=== PATIENT | female | born 2000 | race Caucasian/White ===

== ENCOUNTER 2023-02-07 14:43 | Emergency (ER) | payer BC, SELFPAY ==
[2023-02-07 14:53] VITALS: BP 148/66; PULSE 80; RESP 16; TEMP 37.3; O2SAT 100
--- NOTE | 2023-02-07 15:24 | ED.EAR ---
HPI - Ear Problem General Chief complaint: Ear Stated complaint: Left Ear Pain Source: patient Mode of arrival: ambulatory Limitations: no limitations History of Present Illness HPI Narrative: PATIENT PRESENTS FOR EVALUATION OF DECREASED HEARING AND INCREASED PRESSURE IN HER LEFT EAR THE LAST 5 DAYS. SHE PUT SOME OF HER BOSS' BREAST MILK IN HER EAR TO ASSIST WITH HER SYMPTOMS. IT DID NOT REDUCE HER SYMPTOMS. SHE DENIES ANY FEVER, CHILLS, NAUSEA, VOMITING, SORE THROAT, RESPIRATORY SYMPTOMS. NO HISTORY OF SIMILAR SYMPTOMS. Related Data Allergies Allergy/AdvReac Type Severity Reaction Status Date / Time No Known Allergies Allergy Verified 02/07/23 14:56 Review of Systems Review of Systems: CONSTITUTIONAL: DENIES FEVER, CHILLS, OR SWEATS. EYES: DENIES VISUAL CHANGES, REDNESS, OR DISCHARGE. ENT: REPORTS PRESSURE IN THE LEFT EAR WITH DECREASED HEARING CARDIOVASCULAR: DENIES CHEST PAIN, PALPITATIONS, OR EDEMA. RESPIRATORY: DENIES COUGH OR DYSPNEA. GASTROINTESTINAL: DENIES ABDOMINAL PAIN, NAUSEA, VOMITING, OR DIARRHEA. GENITOURINARY: DENIES DYSURIA OR HEMATURIA. SKIN: DENIES RASH OR ITCHING. MUSCULOSKELETAL: DENIES BACK PAIN, JOINT PAIN, OR MYALGIA. NEUROLOGIC: DENIES HEADACHE, NUMBNESS, DIZZINESS, OR WEAKNESS. PSYCHIATRIC: DENIES ANXIETY OR DEPRESSION. PMFSH Past Medical History Medical History No pertinent past medical history Surgical History Surgical History No pertinent past surgical history Family History Family History Mother Family history non-contributory Social History Social History Smoking status: Current some day smoker Tobacco type: e-cigarettes/vaping Substance use: current Substance use type: marijuana Gender identity (if verbalized by the patient): Female Spiritual care concerns: No Exam Narrative: GENERAL: WELL-APPEARING, WELL-NOURISHED, AND IN NO ACUTE DISTRESS. HEAD: NORMOCEPHALIC, ATRAUMATIC. EYES: PERRLA AND EOMI. ENT: NARES CLEAR, NO RHINORRHEA OR EPISTAXIS. MUCOUS MEMBRANES MOIST. OROPHARYNX WITHOUT TONSILLAR HYPERTROPHY EXUDATE OR OTHER LESIONS. UNABLE TO VISUALIZE BILATERAL TYMPANIC MEMBRANES DUE TO YELLOW EXUDATE AND CERUMEN NECK: SUPPLE. NO ADENOPATHY OR MASSES. NO CAROTID BRUITS OR JVD CHEST: CLEAR TO AUSCULTATION. NO RESPIRATORY DISTRESS. NO WHEEZES RALES OR RHONCHI HEART: REGULAR RATE AND RHYTHM. NO MURMUR HEARD. NORMAL PERIPHERAL PULSES. ABDOMEN: SOFT, NONTENDER, NONDISTENDED, NORMAL ACTIVE BOWEL SOUNDS. EXTREMITIES: NORMAL RANGE OF MOTION. NO EDEMA. SKIN: WARM, DRY, NO RASH. NEURO: NO FOCAL DEFICITS. ALERT AND ORIENTED X3. PSYCH: NORMAL MOOD AND AFFECT. Course Course Emergency Course: THIS IS A 22-YEAR-OLD FEMALE WHO PRESENTED FOR EVALUATION OF LEFT-SIDED EAR PAIN AND DECREASED HEARING. I WAS UNABLE ADULT VISUALIZE HER TYMPANIC MEMBRANES. I IRRIGATED HER EARS WITH HYDROGEN PEROXIDE AND WATER. RIGHT TYMPANIC MEMBRANE INTACT. THERE APPEARS TO BE A PERFORATION LEFT TYMPANIC MEMBRANE. LIKELY 2/2 OTITIS MEDIA SHE HAS SOME YELLOW EXUDATE IN EAR CANAL WILL DC WITH AUGMENTIN AND OFLOXACIN. OTC AGENTS FOR SYMPTOM MANAGEMENT. FOLLOW UP OUTPT AND GO TO ER FOR WORSENING SYMPTOMS. PT IN AGREEMENT WITH PLAN OF CARE. Level of Care: Express Care Visit Vital Signs Vital signs: Vital Signs Temperature 37.3 C 02/07/23 14:53 Pulse Rate 80 02/07/23 14:53 Respiratory Rate 16 02/07/23 14:53 Blood Pressure 148/66 H 02/07/23 14:53 Pulse Oximetry 100 02/07/23 14:53 Oxygen Delivery Room Air 02/07/23 14:53 Temperature 37.3 C 02/07/23 14:53 Pulse Rate 80 02/07/23 14:53 Respiratory Rate 16 02/07/23 14:53 Blood Pressure 148/66 H 02/07/23 14:53 Pulse Oximetry 100 02/07/23 14:53 Oxygen Delivery Room Air
== END 2023-02-07 15:27 | disposition home or self-care (01) ==
PROVIDERS: Emergency Provider Nurse Practitioner; PCP Emergency Medicine
DX: H66.92 Otitis media, unspecified, left ear (principal); H72.92 Unspecified perforation of tympanic membrane, left ear; F17.290 Nicotine dependence, other tobacco product, uncomplicated
CPT/HCPCS: 99213; G0463

== ENCOUNTER 2023-09-25 16:17 | Emergency (ER) | payer SELFPAY ==
[2023-09-25 16:22] VITALS: BP 135/83; PULSE 77; RESP 20; TEMP 36.6; O2SAT 98
--- NOTE | 2023-09-25 16:26 | ED.URI ---
HPI - URI/Sore Throat General Chief Complaint: Abdominal Pain Stated Complaint: Vomiting/Ear Pain/Sore Throat Time Seen by Provider: 09/25/23 16:27 Source: patient and RN notes reviewed Mode of arrival: ambulatory Limitations: no limitations History of Present Illness HPI Narrative: 23-year-old female presents with concern for one-week history of intermittent abdominal discomfort, vomiting, diarrhea. 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 She reports she was given medicine to take and she has not taken it very frequently. She reports a few days ago she began having sore throat particularly at night. She reports headache. MD elicited complaint: sore throat Related Data Allergies Allergy/AdvReac Type Severity Reaction Status Date / Time No Known Allergies Allergy Verified 02/07/23 14:56 Review of Systems Review of Systems: CONSTITUTIONAL: Denies malaise, chills, sweats, or fever. EYES: Denies visual changes, redness, or discharge. ENT: Reports rhinorrhea, congestion, sore throat. Denies sinus pain, otalgia CARDIOVASCULAR: Denies chest pain, palpitations, or edema. RESPIRATORY: Denies cough. Denies dyspnea. GASTROINTESTINAL: Reports intermittent abdominal discomfort, intermittent nausea, intermittent vomiting, intermittent diarrhea SKIN: Denies rash or itching. MUSCULOSKELETAL: Denies myalgia. NEUROLOGIC: Reports headache. All systems reviewed & are unremarkable except as noted in HPI and below PMFSH Past Medical History Medical History (Updated 09/25/23 @ 16:56 by Addie Corona NP) No pertinent past medical history Surgical History Surgical History No pertinent past surgical history Family History Family History Mother Family history non-contributory Social History Social History Smoking status: Current some day smoker Tobacco type: e-cigarettes/vaping Substance use: current Substance use type: marijuana Gender identity (if verbalized by the patient): Female Spiritual care concerns: No Comments At time of signature, agree with nursing past medical, surgical, social and family history. There is no relevant family history pertinent to the presenting complaint Exam Narrative: GENERAL: Well-appearing, well-nourished, and in no acute distress. HEAD: Normocephalic EYES: PERRLA, conjunctivae clear ENT: Nares clear. Mucous membranes moist. TM pearly beauchamp with du short ll light reflex bilaterally; no tragal tenderness. Oropharynx not erythematous without lesions. Tonsils not enlarged and without exudate, no drooling, no hoarseness, no trismus, uvula midline. NECK: Supple. No lymphadenopathy CHEST: Clear to auscultation, breath sounds equal. No wheezing, rhonchi, rales, or stridor. No respiratory distress, speaks in full sentences. ABD: Soft, nontender, normoactive bowel sounds, no palpable masses HEART: Regular rate and rhythm. No murmur heard. SKIN: Warm, dry, no rash. NEURO: Alert and oriented x3. PSYCH: Normal mood and affect Course Course Emergency Course: Patient is aware of diagnosis, understands and agrees to treatment plan. Anticipatory guidance given. Patient agrees to follow-up as directed and is aware of reasons to seek care at the emergency department. Portions of this record may have been created with voice recognition software Level of Care: Express Care Visit Vital Signs Vital signs: Reviewed. MDM - URI/Sore Throat MDM Narrative Medical decision making narrative: Differential diagnosis considered: Acute abdomen, gastritis, howell virus, strep pharyngitis, allergic rhinitis, upper respiratory tract infection, sinusitis, rhinosinusitis, nasopharyngitis. viral pharyngitis, otitis media, otitis externa, pneumonia, bronchitis
== END 2023-09-25 17:01 | disposition home or self-care (01) ==
PROVIDERS: Emergency Provider Nurse Practitioner
DX: R11.2 Nausea with vomiting, unspecified (principal); F17.290 Nicotine dependence, other tobacco product, uncomplicated; F12.90 Cannabis use, unspecified, uncomplicated
CPT/HCPCS: 87081; 87880; 99213; G0463